=== PATIENT | female | born 1950 | race Caucasian/White ===

== ENCOUNTER 2016-05-31 08:09 | Day surgery (SDC) | payer OTHER ==
[2016-05-31] MEDS ORDERED: LACTATED RINGERS 1,000 ML IV ONE (08:41)
[2016-05-31] MEDS ORDERED: fentaNYL 250 MCG/5 ML VIAL IVP ONE (11:08)
[2016-05-31] MEDS ORDERED: MIDAZOLAM 2 MG/2 ML VIAL IVP ONE (11:08)
== END 2016-05-31 08:10 | disposition home or self-care (01) ==
PROC: 0DBN8ZZ Excision of Sigmoid Colon, Via Natural or Artificial Opening Endoscopic (ICD-10-PCS; principal; 2016-05-31 09:20)
DX: Z12.11 Encounter for screening for malignant neoplasm of colon (principal); D12.5 Benign neoplasm of sigmoid colon; J45.909 Unspecified asthma, uncomplicated; M85.80 Other specified disorders of bone density and structure, unspecified site; G47.00 Insomnia, unspecified
CPT/HCPCS: 45380; J3010; J7120

== ENCOUNTER 2017-06-05 14:24 | Outpatient (CLI) | payer OTHER ==
--- NOTE | 2017-06-10 12:55 | Mammography Report ---
DIGITAL SCREENING MAMMOGRAM: 06/05/2017 CLINICAL INDICATION: A 66-year-old with history of late childbearing, for screening. COMPARISON: 03/2016, 06/2014, 05/2013, 05/2012. TECHNIQUE: Routine CC and MLO projections were obtained of the breasts. Bilateral laterally exaggerated craniocaudal views. FINDINGS: Parenchymal tissue within both breasts is heterogeneously dense, which may lower the sensitivity of mammography; however, there are no dominant masses, suspicious microcalcifications, or secondary signs of malignancy. In comparison to the previous studies, there are no significant changes. ASSESSMENT: NO MAMMOGRAPHIC EVIDENCE OF MALIGNANCY. NO SIGNIFICANT INTERVAL CHANGES. RECOMMENDATION: Screening mammography is recommended annually. BIRADS category 1 - negative. STANDARD QUALIFYING STATEMENTS: 1. This examination was reviewed with the aid of Computed-Aided Detection (CAD). 2. A negative or benign imaging report should not delay biopsy if clinically suspicious findings are present. Consider surgical consultation if warranted. More than 5% of cancers are not identified by imaging. 3. Dense breasts may obscure an underlying neoplasm. TD: 06/10/2017 12:53
== END 2017-06-05 14:25 | disposition home or self-care (01) ==
LOC: DI.S 14:24
PROVIDERS: ATTEND Nurse Practitioner Family
DX: Z12.31 Encounter for screening mammogram for malignant neoplasm of breast (principal)
CPT/HCPCS: 77067

== ENCOUNTER 2018-02-20 07:22 | Outpatient (CLI) | payer OTHER ==
[2018-02-20 10:49] LABS: BUN - BLOOD UREA NITROGEN 15 mg/dL (6-20); CALCIUM 9.1 mg/dL (8.5-10.3); CARBON DIOXIDE - CO2 28 mmol/L (21-32); CHLORIDE 102 mmol/L (101-111); CHOL/HDL RATIO 3.3 (<4.4); CHOLESTEROL 200 mg/dL; CREATININE 0.7 mg/dL (0.4-1.0); GFR - MDRD 84 (>89); GLUCOSE 101 mg/dL (70-100); HDL CHOLESTEROL 60 mg/dL; LDL CHOLESTEROL,CALCULATED 122 mg/dL; SODIUM 138 mmol/L (135-145); VLDL CHOLESTEROL 18 mg/dL
== END 2018-02-20 07:23 | disposition home or self-care (01) ==
LOC: LAB.F 07:22
PROVIDERS: ATTEND Nurse Practitioner Family
DX: Z13.1 Encounter for screening for diabetes mellitus (principal); Z13.220 Encounter for screening for lipoid disorders
CPT/HCPCS: 36415; 80048; 80061; 83721

== ENCOUNTER 2018-08-01 12:05 | Outpatient (CLI) | payer OTHER ==
--- NOTE | 2018-08-01 12:43 | Mammography Report ---
Reason: SCREENING MAMMO Procedure Date: 08/01/2018 Accession Number: [id number] / [id number] Procedure: MGN - Screening Mammo Dig Bilat CPT Code: FULL RESULT: EXAM: Screening Mammo Dig Bilat DATE: 08/01/2018 12:28 PM CLINICAL HISTORY: Routine screening. No reported personal or family history of breast cancer. TECHNIQUE: (B) - Bilateral CC and MLO views were obtained. COMPARISON: 06/05/2017 through 06/18/2012 PARENCHYMAL PATTERN: (D) - The breasts demonstrate heterogeneously dense fibroglandular parenchyma bilaterally. FINDINGS: Bilateral breasts: There are no suspicious masses, calcifications, or areas of distortion. IMPRESSION: Negative examination. BI-RADS category1 RECOMMENDATION: (ANNUAL) - Recommend routine annual screening mammography. BI-RADS CATEGORY: (1) - Negative STANDARD QUALIFYING STATEMENTS: 1. This examination was reviewed with the aid of Computer-Aided Detection (CAD). 2. A negative or benign imaging report should not preclude biopsy if clinically suspicious findings are present. 3. Dense breasts may obscure an underlying neoplasm. 4. This examination was reviewed without the aid of 3D breast imaging (tomosynthesis).
== END 2018-08-01 12:06 | disposition home or self-care (01) ==
LOC: DI.N 12:05
DX: Z12.31 Encounter for screening mammogram for malignant neoplasm of breast (principal)
CPT/HCPCS: 77067

== ENCOUNTER 2019-11-18 12:43 | Outpatient (CLI) | payer OTHER ==
--- NOTE | 2019-11-19 08:07 | Mammography Report ---
BILATERAL DIGITAL SCREENING MAMMOGRAM 3D/2D: 11/18/2019 CLINICAL: Routine screening. Comparison is made to exams dated: 08/01/2018 mammogram, 06/05/2017 mammogram, 04/20/2016 mammogram, and 07/01/2014 mammogram - [facility]. The tissue of both breasts is predominantly fatt y. No significant masses, calcifications, or other findings are seen in either breast. There has been no significant interval change. IMPRESSION: NEGATIVE There is no mammographic evidence of malignancy. A 1 year screening mammogram is recommended. This exam was interpreted at Station ID: [id number]. NOTE: For mammograms, a report in lay terms will be sent to the patient. Approximately 15% of breast malignancies will not be visualized mammographically. In the management of a palpable breast mass, a negative mammogram must not discourage biopsy of a clinically suspicious lesion. Electronically Signed By: Natalio vaughn/rupinder:11/18/2019 18:16:04 ACR BI-RADS Category 1: Negative 3341F PARENCHYMAL PATTERN: (F) - The breast(s) demonstrate(s) diffuse fatty replacement. BI-RADS CATEGORY: (1) - 1 RECOMMENDATION: (ANNUAL) - Recommend routine annual screening mammography. [id number] 1 year screening LATERALITY: (B)
== END 2019-11-18 12:44 | disposition home or self-care (01) ==
LOC: DI 12:43
DX: Z12.31 Encounter for screening mammogram for malignant neoplasm of breast (principal)
CPT/HCPCS: 77063; 77067

== ENCOUNTER 2021-07-25 14:00 | Outpatient (CLI) | payer OTHER ==
--- NOTE | 2021-07-26 09:03 | Mammography Report ---
BILATERAL DIGITAL SCREENING MAMMOGRAM 3D/2D WITH EXAGGERATED CC: 07/25/2021 CLINICAL: Routine screening. Comparison is made to exams dated: 11/18/2019 mammogram, 08/01/2018 mammogram, and 06/05/2017 mammogram - [facility]. The tissue of both breasts is heterogeneously dense. This may lower t he sensitivity of mammography. There is a possible oval asymmetry with an indistinct margin in the left breast posterior depth super ior region seen on the mediolateral oblique view only. This is more prominent and increased in size. No other significant masses, calcifications, or other findings are seen in either breast. IMPRESSION: INCOMPLETE: NEEDS ADDITIONAL IMAGING EVALUATION The possible oval asymmetry in the left breast is indeterminate. Additional views with possible ultr asound are recommended. This exam was interpreted at Station ID: [id number]. NOTE: For mammograms, a report in lay terms will be sent to the patient. Approximately 15% of breast malignancies will not be visualized mammographically. In the management of a palpable breast mass, a negative mammogram must not discourage biopsy of a clinically suspicious lesion. Electronically Signed By: Ana Maria stovall/penrad:07/25/2021 18:40:54 ACR BI-RADS Category 0: Incomplete 3340F PARENCHYMAL PATTERN: (D) - The breast(s) demonstrate(s) heterogeneously dense fibroglandular parjessica oliver. BI-RADS CATEGORY: (0) - 0 Mammo and [place] [id number] Immediate follow-up LATERALITY: (B)
== END 2021-07-25 14:01 | disposition home or self-care (01) ==
LOC: DI.S 14:00
PROVIDERS: ATTEND Internal Medicine
DX: Z12.31 Encounter for screening mammogram for malignant neoplasm of breast (principal); R92.8 Other abnormal and inconclusive findings on diagnostic imaging of breast

== ENCOUNTER 2021-08-28 08:25 | Outpatient (CLI) | payer OTHER ==
--- NOTE | 2021-08-28 09:15 | DEXA Report ---
PROCEDURE: Dexa Spine and/or Hip INDICATIONS: POST MENOPAUSAL TECHNIQUE: Dual energy x-ray absorptiometry (DXA) was performed on a [employer] System. Regions measur ed are the AP Spine, femoral neck, and if needed forearm. COMPARISON: None. FINDINGS: Lumbar Spine: Bone Mineral Density 1.006 g/cm/cm,T score -1.6, osteopenia Left Hip: Bone Mineral Density 0.811 g/cm/cm,T score -1.6, osteopenia Left Femoral Neck: Bone Mineral Density 0.816 g/cm/cm, T score -1.6, osteopenia (T score greater or equal to -1.0: NORMAL) (T score from -1.1 to -2.4: OSTEOPENIA) (T score less than or equal to -2.5 to: OSTEOPOROSIS) Impression: Bone mineral density classified as osteopenia. Patients with diagnosis of osteoporosis or osteopenia should have regular bone mineral density assess ment. For those eligible for Medicare, routine testing is allowed once every 2 years. Testing frequ ency can be increased for patients who have rapidly progressing disease or for those who are receivin g medical therapy to restore bone mass. Reviewed by: Axel Fischer on 08/28/2021 9:14 AM PDT Approved by: Axel Fischer on 08/28/2021 9:14 AM PDT Station ID: [id number]
== END 2021-08-28 08:26 | disposition home or self-care (01) ==
LOC: DI 08:25
PROVIDERS: ATTEND Internal Medicine
DX: Z78.0 Asymptomatic menopausal state (principal); M85.89 Other specified disorders of bone density and structure, multiple sites

== ENCOUNTER 2021-11-28 09:48 | Day surgery (SDC) | payer OTHER ==
[2021-11-28] MEDS ORDERED: LACTATED RINGERS 1,000 ML IV ONE (09:54)
--- NOTE | 2021-11-28 10:22 | ANESTHESIA ---
Pre-Anesthesia VS, & Labs - Diagnosis hx of colon polyps - Procedure colonoscopy Vital Signs: Temp Pulse Resp BP Pulse Ox 36.1 C L 78 16 131/59 H 100 11/28/21 09:54 11/28/21 09:54 11/28/21 09:54 11/28/21 09:54 11/28/21 09:54 Height: 5 ft 3 in Weight (kg): 50.9 kg Body Mass Index: 19.8 BMI Classification: Healthy weight - NPO >8 hours - Is Patient ?: No Home Medications and Allergies Home Medications: Ambulatory Orders Fexofenadine HCl 1 tab PO PRN PRN 11/28/21 Naproxen Sodium [Aleve] 1 tab PO PRN PRN 11/28/21 Fexofenadine HCl 1 tab PO PRN PRN 11/28/21 Naproxen Sodium [Aleve] 1 tab PO PRN PRN 11/28/21 Allergies/Adverse Reactions: Allergies Allergy/AdvReac Type Severity Reaction Status Date / Time Sulfa (Sulfonamide Allergy Nausea Verified 11/27/21 11:12 Antibiotics) Anes History & Medical History - Anesthetic History Anesthesia Complications: reports: No previous complications Family history of Anesthesia Complications: Denies Family history of Malignant Hyperthermia: Denies - Medical History Cardiovascular: reports: None Pulmonary: reports: Asthma (no recent inhaler use. no asthma attack since 1969) Gastrointestinal: reports: None, Colon polyps Urinary: reports: Chronic bladder infection (no recent infections) Neuro: reports: None Musculoskeletal: reports: None Endocrine/Autoimmune: reports: None Blood Disorders: reports: None Skin: reports: None Smoking Status: Never smoker Psychosocial: reports: Alcohol (occasional) History of Cancer?: No - Surgical History General: reports: Colonoscopy Gynecologic: reports: Dilation and currettage Exam General: Alert, Oriented x3, Cooperative, No acute distress Dental: WNL Mouth Openin Fingerbreadth Neck Mobility: Normal Mallampati classification: II Thyromental Distance: less than 4 cm Respiratory: Lungs clear, Normal breath sounds, No respiratory distress, No accessory muscle use Cardiovascular: Regular rate, Normal S1, Normal S2, No murmurs Mental/Cognitive Status: Alert/Oriented X3, Normal for patient Cognitive Status: Within normal limits Plan Anesthesia Type: General, Total IV Consent for Procedure(s) Verified and Reviewed: Yes Code Status: Attempt Resuscitation ASA classification: 2-Mild systemic disease Is this case an emergency?: No
[2021-11-28] MEDS ORDERED: LIDOCAINE-MPF 2% 5 ML VIAL ONE (10:42)
[2021-11-28] MEDS ORDERED: PROPOFOL 500 MG/50 ML 500 MG/50 ML VIAL ONE (10:42)
[2021-11-28] MEDS ORDERED: LACTATED RINGERS 300 ML IV ONE (11:45)
[2021-11-28 12:27] VITALS: BP 108/63
--- NOTE | 2021-11-28 13:18 | ANESTHESIA POST OP EVALUATION ---
Anesthesia Post Eval - Post Anesthesia Eval Vitals: Last Vital Signs Temp 36.6 C 11/28/21 12:20 Pulse 71 11/28/21 12:20 Resp 16 11/28/21 12:20 BP 108/63 11/28/21 12:20 Pulse Ox 98 11/28/21 12:20 CV Function Including HR & BP: Stable Pain Control: Satisfactory Nausea & Vomiting: Negative Mental Status: Baseline Respiratory Status: Airway Patent Hydration Status: Satisfactory Anesthesia Complications: None
== END 2021-11-28 09:49 | disposition home or self-care (01) ==
LOC: SDS 09:48
PROVIDERS: ATTEND Surgery
PROC: 0DBK8ZX Excision of Ascending Colon, Via Natural or Artificial Opening Endoscopic, Diagnostic (ICD-10-PCS; principal; 2021-11-28 11:00)
DX: D12.2 Benign neoplasm of ascending colon (principal); J45.20 Mild intermittent asthma, uncomplicated; F40.8 Other phobic anxiety disorders; F40.10 Social phobia, unspecified
CPT/HCPCS: 45380; J7120

== ENCOUNTER 2023-07-09 08:00 | Outpatient (CLI) | payer OTHER ==
--- NOTE | 2023-07-09 16:21 | XRAY Report ---
PROCEDURE: Chest 2V INDICATIONS: BRONCHITIS, ACUTE TECHNIQUE: 2 views of the chest were acquired. COMPARISON: None. FINDINGS: Surgical changes and devices: None. Lungs and pleura: No pleural effusions or pneumothorax. Lungs are clear. Mediastinum: Mediastinal contours appear normal. Heart size is normal. Bones and chest wall: No suspicious bony lesions. Overlying soft tissues appear unremarkable. IMPRESSION: No acute cardiopulmonary process. No focal consolidation. Reviewed by: Berhane Ferraro MD on 07/09/2023 3:20 PM BLAINE Approved by: Berhane Ferraro MD on 07/09/2023 3:20 PM BLAINE Station ID: [id number]
== END 2023-07-09 23:59 | disposition home or self-care (01) ==
LOC: DI.S 08:00
PROVIDERS: ATTEND Emergency Medicine
DX: J20.9 Acute bronchitis, unspecified (principal)